=== PATIENT | female | born 1990 | race Caucasian/White ===

== ENCOUNTER → 2016-07-17 | Outpatient (CLI) | payer BC ==
--- NOTE | 2016-07-17 16:55 | US ---
EXAMINATION TYPE: US pelvic complete DATE OF EXAM: 07/17/2016 COMPARISON: NONE CLINICAL HISTORY: R10.2 PELVIC PAIN. possible endometriosis, trying for 1 year to get TECHNIQUE: TA Date of LMP: 07/06/2016 EXAM MEASUREMENTS: Uterus: 10.9 x 6.4 x 4.9 cm Endometrial Stripe: 1.4 cm Right Ovary: 2.8 x 2.4 x 3.0 cm Left Ovary: 2.5 x 1.9 x 2.0 cm 1. Uterus: Retroverted wnl 2. Endometrium: wnl 3. Right Ovary: 1.6cm dominate follicle seen 4. Left Ovary: wnl 5. Bilateral Adnexa: wnl 6. Posterior cul-de-sac: wnl IMPRESSION: Retroverted uterus. Negative transabdominal pelvic sonogram.
== END | disposition home or self-care (01) ==
LOC: RADUSWWP 16:00
PROVIDERS: ATTEND Obstetrics & Gynecology
DX: N85.4 Malposition of uterus (principal); R10.2 Pelvic and perineal pain
CPT/HCPCS: 76856

== ENCOUNTER → 2017-03-26 | Outpatient (CLI) | payer BC ==
[2017-03-26 10:04] LABS: HCT 37.6 % (34.0-46.0); HGB 12.3 gm/dL (11.4-16.0); MCH 29.6 pg (25.0-35.0); MCHC 32.7 g/dL (31.0-37.0); MCV 90.4 fL (80.0-100.0); Mean Platelet Volume 8.1; Platelet Count 171 k/uL (150-450); RBC 4.16 m/uL (3.80-5.40); RDW 12.7 % (11.5-15.5)
== END | disposition home or self-care (01) ==
LOC: LABWHC1 08:23
PROVIDERS: ATTEND Obstetrics & Gynecology
DX: Z34.82 Encounter for supervision of other normal pregnancy, second trimester (principal); Z3A.00 Weeks of gestation of pregnancy not specified
CPT/HCPCS: 36415; 82950; 85027

== ENCOUNTER 2017-04-28 11:28 | Outpatient (CLI) | payer BC ==
[2017-04-28 11:53] LABS: Appearance,Urine Clear (Clear); Bilirubin,Urine Negative (Negative); Blood,Urine Negative (Negative); Color,Urine Light Yellow; Glucose,Urine (UA) Negative (Negative); Ketones,Urine Negative (Negative); Leukocyte Esterase,Urine Negative (Negative); Nitrite,Urine Negative (Negative); Protein,Urine Negative (Negative); Specific Gravity,Urine 1.001 (1.001-1.035); Urobilinogen,Urine <2.0 mg/dL (<2.0)
[2017-04-28 12:20] VITALS: BP 110/61; PULSE 77; RESP 16; TEMP 97.2
[2017-04-28 12:22] LABS: Basophils % (A) 0 %; Eosinophils # (A) 0.1 k/uL (0-0.7); Eosinophils % (A) 1 %; HCT 35.3 % (34.0-46.0); HGB 12.5 gm/dL (11.4-16.0); Lymphocytes # (A) 1.2 k/uL (1.0-4.8); Lymphocytes % (A) 24 %; MCH 30.5 pg (25.0-35.0); MCHC 35.3 g/dL (31.0-37.0); MCV 86.3 fL (80.0-100.0); Monocytes # (A) 0.4 k/uL (0-1.0); Monocytes % (A) 8 %; Neutrophils # (A) 3.2 k/uL (1.3-7.7); Neutrophils % (A) 63 %; Platelet Count 157 k/uL (150-450); WBC 5.1 k/uL (3.8-10.6)
[2017-04-28] MEDS: LACTATED RINGERS 1,000 ML IV ONE ×2 (12:22→13:00)
--- NOTE | 2017-04-28 17:28 | P.MSEPDOC ---
Presenting Problems - Arrival Data Date of Arrival on Unit: 04/28/17 Time of Arrival on Unit: 11:28 Mode of Transport: Ambulatory - Complaint OB-Reason for Admission/Chief Complaint: Possible Onset of Labor, Pain Comment: Contractions since yesterday following several hours of vomitting and diarrhea; states tightening in abdomen and pain "in cervix" during contractions , rating 2/10. Fetus with congential heart defect. Medical History - Information : 5 Para: 2 Term: 2 : 0 Abortions: Spontaneous or Elective: 2 Number of Living Children: 2 - Gestational Age Gestational Age by SANAM (wks/days): 30 Weeks and 3 Days Review of Systems - Review of Systems Constitutional: No problems Breast: No problems ENT: No problems Cardiovascular: No problems Respiratory: No problems Gastrointestinal: No problems Genitourinary: No problems Musculoskeletal: No problems Neurological: No problems Skin: No problems Comment: Pt states no vomitting or diarrhea for >24 hours Vital Signs - Temperature Temperature: 97.2 F Temperature Source: Temporal Artery Scan - Pulse Right Sitting Brachial Pulse Rate: 77 Pulse Assessment Method: Automatic Cuff - Respirations Respiratory Rate: 16 Oxygen Delivery Method: Room Air O2 Sat by Pulse Oximetry: 99 - Blood Pressure Right Arm Sitting Blood Pressure: 110/61 Blood Pressure Mean: 77 Blood Pressure Source: Automatic Cuff Medical Screen Scoring (Pre) - Cervical Exam Dilation: 0 cm = 0 Membranes: Intact - Uterine Contractions Frequency: N/A Duration: N/A Intensity: N/A - Maternal Vital Signs Maternal Temperature: N/A Maternal Blood Pressure: N/A Signs of Preeclampsia: N/A Maternal Respirations: N/A - Total Score Total Score (Pre): 0 - Level of Risk Level of Risk: Low (0-5) Physician Notification (Pre) - Physician Notified Physician Notified Date: 04/28/17 Physician Notified Time: 11:40 Physician/Practitioner Notifed:: Beverley Spoke With: Beverley New Order Received: Yes - Notification Comment Comment: Dr. Lowery present on unit; advsd pts reason for visit; states to start IV, CBC, FFN, SVE, Influenza swab, UA. Medical Screen Scoring (Post) - Cervical Exam Dilation: 1-3 cm = 1 Membranes: Intact - Uterine Contractions Frequency: N/A Duration: N/A Intensity: N/A - Maternal Vital Signs Maternal Temperature: N/A Maternal Blood Pressure: N/A Signs of Preeclampsia: N/A Maternal Respirations: N/A - Maternal Trauma Maternal Trauma: N/A - Assessment Heart Rate: 140 Heart Rate - NICHD Category: Category I (Normal) = 0 Station: N/A - Total Score Total Score (Post): 1 - Post Treatment Level of Risk Post Treatment Level of Risk: Low (0-5) Physician Notification (Post) - Physician Notified Physician Notified Date: 04/28/17 Physician Notified Time: 14:45 Physician/Practitioner Notified:: Beverley Spoke With: Beverley New Order Received: Yes - Notification Comment Comment: Spk c\\Dr. Lowery, advsd no change in SVE x 3, pt reporting abdomen tightening and pressure in back, not tracing on TOCO. Reactive NST. All labs WNL , FFN neg. States to d/c, follow up with [facility] 05/09/17, call to reschedule missed appt c\\Dr. Lowery. Pt to go directly to [facility] if contractions intensify. Disposition - Disposition OB Disposition: Discharge to home, Written follow up instructions reviewed Discharge Date: 04/28/17 Discharge Time: 14:50 I agree with the RN Medical Screening Exam: Yes Risk & Benefit of care provided described in d/c instruction: Yes Diagnosis: FALSE LABOR BEFORE 37 COMPLETED WEEKS OF GEST, THIRD TRI
== END 2017-04-28 14:50 | disposition home or self-care (01) ==
LOC: FBPOP 11:28
PROVIDERS: ATTEND Obstetrics & Gynecology
DX: O47.03 False labor before 37 completed weeks of gestation, third trimester (principal); Z3A.30 30 weeks gestation of pregnancy
CPT/HCPCS: 59025; 59200; 81003; 82731; 85025; 87502; 96360; 96361; 99214

== ENCOUNTER → 2020-02-28 | Outpatient (CLI) | payer OTHER | END | disposition home or self-care (01) | LOC: LABWHC1 12:19 | PROVIDERS: ATTEND Obstetrics & Gynecology | DX: N92.6 Irregular menstruation, unspecified (principal); Z32.01 Encounter for pregnancy test, result positive | CPT/HCPCS: 36415; 84702 ==

== ENCOUNTER → 2020-03-12 | Outpatient (CLI) | payer OTHER ==
--- NOTE | 2020-03-13 13:22 | US ---
EXAMINATION TYPE: Transabdominal DATE OF EXAM: 03/12/2020 4:04 PM COMPARISON: NONE CLINICAL HISTORY: Z36 Confirm dates. EXAM PERFORMED: EXAM MEASUREMENTS: GESTATIONAL AGE / DATING Physician Established: Not yet established Dates by LMP: (7 weeks/1 days) EDC: 10-28-20 Dates by First Scan: No previous this is first scan Dates by Current Scan for: ( 7 weeks/0 days) EDC: 10-29-20 MATERNAL ANATOMY Uterus: 11. 2 x 5.1 x 6.9cm Right Ovary: 3.4 x 1.9 x 2.1cm Left Ovary: 3.2 x 2.7 x 2.4cm Post CDS / Adnexa: wnl Presence of free fluid: no GESTATION / SURVEY CRL: 0.9 (7 weeks/0 days) Yolk Sac (normal less than 6mm): 3mm Heart Rate: 145 bpm Rhythm: Normal IUP: Viable IUP Date of LMP: 10-28-20 Beta HcG (if available): Not available at this time IMPRESSION: 1. Single intrauterine gestation estimated at 7 weeks 0 days gestation based on crown-rump length. Ca rdiac activity measuring 125 bpm was observed during the study
== END | disposition home or self-care (01) ==
LOC: RADUSWWP 15:33
PROVIDERS: ATTEND Obstetrics & Gynecology
DX: Z36.87 Encounter for antenatal screening for uncertain dates (principal); Z3A.01 Less than 8 weeks gestation of pregnancy
CPT/HCPCS: 76801

== ENCOUNTER → 2020-06-17 | Outpatient (CLI) | payer OTHER ==
--- NOTE | 2020-06-17 10:41 | USB ---
Reason for exam: clinical finding. Indicated problem(s): pain in the right breast. Physical Findings: Nurse Summary: Patient complains of bilateral breast lumps since started breast feeding 3 years ago with right breast pain (nurse mj). US Breast RT Right complete breast ultrasound includes all four quadrants, the retroareolar region and axilla. Finding demonstrates no cystic or solid lesion seen. Dense tissue throughout scan. These results were verbally communicated with the patient and result sheet given to the patient on 06/17/20. ASSESSMENT: Benign, BI-RAD 2 RECOMMENDATION: Clinical management of the right breast. Manage patient on a clinical basis.
== END | disposition home or self-care (01) ==
LOC: RADUSWWP 09:37
PROVIDERS: ATTEND Obstetrics & Gynecology
DX: N64.4 Mastodynia (principal)

== ENCOUNTER 2020-09-10 14:07 | Outpatient (CLI) | payer OTHER ==
[2020-09-10] MEDS ORDERED: LACTATED RINGERS 1,000 ML IV SCH (16:15)
[2020-09-10] MEDS ORDERED: BETAMET ACET-BETAMETH SOD PHOS 6 MG/ML MDV IM SCH (16:15)
[2020-09-10 17:16] VITALS: BP 112/64; PULSE 70; RESP 17; TEMP 97.6
--- NOTE | 2020-09-14 13:11 | P.MSEPDOC ---
Presenting Problems - Arrival Data Date of Arrival on Unit: 09/10/20 Time of Arrival on Unit: 14:07 Mode of Transport: Ambulatory - Complaint OB-Reason for Admission/Chief Complaint: NST, Celestone Injection Medical History - Information : 4 Para: 3 Term: 3 : 0 Abortions: Spontaneous or Elective: 0 Number of Living Children: 3 - Gestational Age Gestational Age by SANAM (wks/days): 33 Weeks and 0 Days Review of Systems - Review of Systems Constitutional: No problems Breast: No problems ENT: No problems Cardiovascular: No problems Respiratory: No problems Gastrointestinal: No problems Genitourinary: No problems Musculoskeletal: No problems Neurological: No problems Skin: No problems Vital Signs - Temperature Temperature: 97.6 F Temperature Source: Oral - Pulse Right Brachial Pulse Rate: 70 Pulse Assessment Method: Automatic Cuff - Respirations Respiratory Rate: 17 Oxygen Delivery Method: Room Air O2 Sat by Pulse Oximetry: 98 - Blood Pressure Right Arm Blood Pressure: 112/64 Blood Pressure Mean: 80 Blood Pressure Source: Automatic Cuff Medical Screen Scoring - Cervical Exam Dilation (cm): 2.5 Effacement (%): 70 Membranes: Intact - Assessment - Baby A Baseline FHR: 120 Heart Rate - NICHD Category: Category I (Normal) NST: Reactive Maternal Triage Index - Urgent/Priority 2 Urgent Priority 2: Yes Provider Notified: Jeremias Lowery Provider Notified Time: 14:07 Criteria Met for Priority 2: Dr Lowery had called before pt arrived with orders, ffn resulted -, iv huydration and steroids administered Disposition - Disposition OB Disposition: Discharge to home, Written follow up instructions reviewed Discharge Date: 09/10/20 Discharge Time: 17:00 I agree with the RN Medical Screening Exam: Yes Case reviewed; plan agreed upon as documented in EMR&OBIX.: Yes Diagnosis: LABOR WITHOUT DELIVERY, THIRD TRIMESTER
== END 2020-09-10 17:00 | disposition home or self-care (01) ==
LOC: FBPOP 14:07
PROVIDERS: ATTEND Obstetrics & Gynecology
DX: O60.03 Preterm labor without delivery, third trimester (principal); Z3A.33 33 weeks gestation of pregnancy
CPT/HCPCS: 59025; 96360; 82731; J0702

== ENCOUNTER 2020-09-11 16:45 | Outpatient (CLI) | payer OTHER ==
[2020-09-11] MEDS ORDERED: BETAMET ACET-BETAMETH SOD PHOS 6 MG/ML MDV IM SCH (17:00)
--- NOTE | 2020-09-14 13:12 | P.MSEPDOC ---
Presenting Problems - Arrival Data Date of Arrival on Unit: 09/11/20 Time of Arrival on Unit: 16:45 Mode of Transport: Ambulatory - Complaint OB-Reason for Admission/Chief Complaint: Celestone Injection Medical History - Gestational Age Gestational Age by SANAM (wks/days): 33 Weeks and 1 Days Review of Systems - Review of Systems Constitutional: No problems Breast: No problems ENT: No problems Cardiovascular: No problems Respiratory: No problems Gastrointestinal: No problems Genitourinary: No problems Musculoskeletal: No problems Neurological: No problems Skin: No problems Physician Notification - Physician Notified Physician Notified Date: 09/11/20 Physician Notified Time: 17:00 Physician: Heriberto Vasquez Order Received: Yes (discharge) Maternal Triage Index - Maternal Triage Index Presenting for scheduled procedure w/no complaint: No - Stat/Priority 1 Stat Priority 1: No - Urgent/Priority 2 Urgent Priority 2: No - Prompt/Priority 3 Prompt Priority 3: No - Non-Urgent/Priority 4 Non-Urgent Priority 4: No - Scheduled/Requesting Priority 5 Scheduled/Requesting Priority 5: Yes Criteria Met for Priority 5: Pt has order for repeat Celestone injection only Disposition - Disposition OB Disposition: Discharge to home Discharge Date: 09/11/20 Discharge Time: 17:00 I agree with the RN Medical Screening Exam: Yes Case reviewed; plan agreed upon as documented in EMR&OBIX.: Yes Diagnosis: LABOR WITHOUT DELIVERY, THIRD TRIMESTER
== END 2020-09-11 17:00 | disposition home or self-care (01) ==
LOC: FBPOP 16:45
PROVIDERS: ATTEND Obstetrics & Gynecology
DX: O60.03 Preterm labor without delivery, third trimester (principal); Z3A.33 33 weeks gestation of pregnancy
CPT/HCPCS: 96372; J0702

== ENCOUNTER 2020-09-20 15:39 | Outpatient (CLI) | payer OTHER ==
[2020-09-20 16:47] LABS: Appearance,Urine Clear (Clear); Bacteria,Urine Rare /hpf; Bilirubin,Urine Negative (Negative); Blood,Urine Negative (Negative); Color,Urine Colorless; Glucose,Urine (UA) Negative (Negative); Ketones,Urine Trace (Negative); Leukocyte Esterase,Urine Moderate (Negative); Nitrite,Urine Negative (Negative); PH, Urine 6.5 (5.0-8.0); Protein,Urine Negative (Negative); Specific Gravity,Urine 1.001 (1.001-1.035); Squamous Epithelial Cell,Urine <1 /hpf (0-4); Urobilinogen,Urine <2.0 mg/dL (<2.0); WBC,Urine 2 /hpf (0-5)
[2020-09-20 17:28] VITALS: BP 115/60; PULSE 60; RESP 16; TEMP 98
--- NOTE | 2020-09-24 07:36 | P.MSEPDOC ---
Presenting Problems - Arrival Data Date of Arrival on Unit: 09/20/20 Time of Arrival on Unit: 15:44 Mode of Transport: Ambulatory - Complaint OB-Reason for Admission/Chief Complaint: Possible Onset of Labor Medical History - Information : 4 Para: 3 Number of Living Children: 3 - Gestational Age Gestational Age by SANAM (wks/days): 34 Weeks and 3 Days - History Complications: No Care Review of Systems - Review of Systems Constitutional: No problems Breast: No problems ENT: No problems Cardiovascular: No problems Respiratory: No problems Gastrointestinal: No problems Genitourinary: No problems Musculoskeletal: No problems Neurological: No problems Skin: No problems Vital Signs - Temperature Temperature: 98.0 F Temperature Source: Axillary - Pulse Right Sitting Brachial Pulse Rate: 60 Pulse Assessment Method: Automatic Cuff - Respirations Respiratory Rate: 16 Oxygen Delivery Method: Room Air - Blood Pressure Right Arm Sitting Blood Pressure: 115/60 Blood Pressure Mean: 78 Blood Pressure Source: Automatic Cuff Physician Notification - Physician Notified Physician Notified Date: 09/20/20 Physician Notified Time: 17:04 New Order Received: Yes Maternal Triage Index - Stat/Priority 1 Stat Priority 1: No - Urgent/Priority 2 Urgent Priority 2: No - Prompt/Priority 3 Prompt Priority 3: No - Non-Urgent/Priority 4 Non-Urgent Priority 4: Yes Criteria Met for Priority 4: contractions Disposition - Disposition OB Disposition: Discharge to home Discharge Date: 09/20/20 Discharge Time: 17:20 I agree with the RN Medical Screening Exam: Yes Case reviewed; plan agreed upon as documented in EMR&OBIX.: Yes Diagnosis: FALSE LABOR BEFORE 37 COMPLETED WEEKS OF GEST, THIRD TRI
== END 2020-09-20 17:20 | disposition home or self-care (01) ==
LOC: FBPOP 15:39
PROVIDERS: ATTEND Obstetrics & Gynecology
DX: O47.03 False labor before 37 completed weeks of gestation, third trimester (principal); Z3A.34 34 weeks gestation of pregnancy
CPT/HCPCS: 59025; 81001; G0463; 99213

== ENCOUNTER 2020-10-03 10:06 | Inpatient (IN) | payer OTHER ==
[2020-10-03] MEDS ORDERED: METHYLERGONOVINE 0.2 MG/ML 1 ML AMP IM PRN (11:05)
[2020-10-03] MEDS ORDERED: LIDOCAINE 0.5% (PF) 5 MG/ML (50 ML SDV) SQ PRN (11:05)
[2020-10-03] MEDS ORDERED: CARBOPROST TROMETHAMINE 250 MCG/ML 1 ML AMP IM PRN (11:05)
[2020-10-03] MEDS ORDERED: AMPICILLIN 2,000 MG in SODIUM CHLORIDE 0.9% 100 ML IVPB STA (11:05)
[2020-10-03] MEDS ORDERED: OXYTOCIN 10 UNIT/ML 1 ML VIAL IM PRN (11:05)
[2020-10-03] MEDS ORDERED: TERBUTALINE 1 MG/ML VIAL SQ PRN (11:05)
[2020-10-03] MEDS ORDERED: OXYTOCIN 30 UNITS/500 ML NS 30 UNIT in SALINE 1 500ML.BAG IV SCH ×2 (11:15→20:30)
[2020-10-03 11:29] LABS: Basophils % (A) 1 %; Eosinophils # (A) 0.1 k/uL (0-0.7); Eosinophils % (A) 1 %; HCT 34.8 % (34.0-46.0); Lymphocytes # (A) 1.7 k/uL (1.0-4.8); Lymphocytes % (A) 24 %; MCH 30.8 pg (25.0-35.0); MCHC 34.4 g/dL (31.0-37.0); MCV 89.6 fL (80.0-100.0); Mean Platelet Volume 9.3; Monocytes # (A) 0.4 k/uL (0-1.0); Monocytes % (A) 5 %; Neutrophils # (A) 4.8 k/uL (1.3-7.7); Neutrophils % (A) 67 %; Platelet Count 182 k/uL (150-450); RBC 3.89 m/uL (3.80-5.40); RDW 14.5 % (11.5-15.5); WBC 7.2 k/uL (3.8-10.6)
[2020-10-03] MEDS: LACTATED RINGERS 1,000 ML IV SCH ×2 (11:29→19:12)
[2020-10-03] MEDS: AMPICILLIN 1,000 MG in SODIUM CHLORIDE 0.9% 50 ML IVPB SCH ×2 (15:31→19:29)
--- NOTE | 2020-10-03 17:35 | P.HPOB ---
History of Present Illness H&P Date: 10/03/20 Chief Complaint: P prom at 36 weeks Susu is a 30-year-old at 36 weeks gestation who arrives following spontaneous rupture membranes this morning. Group B strep has not been done and she will have prophylactic antibiotics. Her course generally speaking had been unremarkable and she was doing well until today. She had had some contractions and possible labor-like symptoms but otherwise voices no complaints and her was otherwise generally unremarkable. The fetus did undergo a echocardiogram with maternal- medicine but she was unable to continue following up with them. The echocardiogram was normal. Pertinent labs A+ blood type, Rh and it was negative, rubella is immune, hepatitis B surface antigen, RPR were both negative. She does have a latex ALLERGY. She did receive 2 doses of Celestone for possible labor at approximately 33 weeks. All the questions are answered for her at this time and if spontaneous labor does not consume Pitocin augmentation of labor will be initiated. A category 1 tracing is otherwise noted. Past Medical History Past Medical History: No Reported History History of Any Multi-Drug Resistant Organisms: None Reported Past Surgical History: No Surgical Hx Reported Past Psychological History: No Psychological Hx Reported Smoking Status: Never smoker - Past Family History Mother History Unknown: Yes Family Medical History: No Reported History Medications and Allergies Home Medications Medication Instructions Recorded Confirmed Type Pnv No.95/Ferrous Fum/Folic AC 1 tab PO DAILY 04/28/17 10/03/20 History [ Multivitamin Tablet] Allergies Allergy/AdvReac Type Severity Reaction Status Date / Time latex Allergy Rash/Hives Verified 10/03/20 10:43 Exam Osteopathic Statement: *. No significant issues noted on an osteopathic structural exam other than those noted in the History and Physical/Consult. Vital Signs Temp Pulse Resp BP 10/03/20 12:03 97.4 F L 82 16 120/68 Intake and Output 10/03/20 10/03/20 10/03/20 06:59 14:59 22:59 Other: # Voids 2 # Bowel Movements 0 Weight 75.296 kg - OBG Physical Exam Breast: both: normal (no masses) Abdomen: bowel sounds normal, no diffuse tenderness, no bruit present, no guarding noted, no hepatomegaly, no splenomegaly, no mass Vulva: both: normal Vagina: normal moisture, no discharge Cervix: no lesion, no discharge Uterus: normal size, normal contour Adnexa: both: normal Anus/Rectum: normal perianal skin, no rectal mass, no hemorrhoids, heme negative Results Result Diagrams: 10/03/20 11:00
--- NOTE | 2020-10-03 20:24 | P.PROBDLV ---
Vaginal Delivery Note - . Vaginal Delivery Note: Normal spontaneous vaginal delivery viable male infant Apgars 9 and 9 delivery time is 2012 hrs. Please see dictated H&P per Dr. Lowery on this patient's admission. In brief summary this is a pleasant 30-year-old 4 para 3 female estimated gestational age 36-2/7 weeks admitted to labor and delivery with spontaneous rupture membranes. Patient is unknown group B strep status and therefore given a dose of antibiotics. After 4 hours she does not have any progression and therefore started on Pitocin per protocol. She does not request anything for pain control. Patient's labor progresses quickly thereafter she gets to complete. Patient pushes the head to the perineum the posterior perineum was supported. We then have controlled delivery of 's head over the intact perineum. Mouth and nares are bulb suctioned. Infant is straight occiput anterior presentation. There is no evidence of a nuchal cord. With gentle downward traction we then have deliver the anterior and posterior shoulder and rest this 's body. This is a vigorous viable male infant Apgars are 9 and 9 delivery time is 2012 hrs. After delivery of the infant, the infant is late on the mother's abdomen. The cord is allowed quit pulsating and then doubly clamped and cut. It appears to be trivascular. The placenta is then spontaneously delivered intact. Estimated blood loss is about 100 mL. There are no lacerations and no repairs required. and mother are stable delivery room.
[2020-10-03] MEDS ORDERED: LANOLIN CREAM 5 GM TUBE TOPICAL PRN (20:29)
[2020-10-03] MEDS ORDERED: BENZOCAINE/MENTHOL SPRAY 1 GM/SPRAY AEROSOL TOPICAL PRN (20:29)
[2020-10-03] MEDS ORDERED: bisacodyL 10 MG SUPP RECTAL PRN (20:29)
[2020-10-03] MEDS ORDERED: ZOLPIDEM 5 MG TAB PO PRN (20:29)
[2020-10-03] MEDS ORDERED: diphenhydrAMINE 50 MG/ML 1 ML VIAL IVP PRN (20:29)
[2020-10-03] MEDS ORDERED: HYDROCORTISONE 2.5% RECTAL CREAM 30 GM TUBE RECTAL PRN (20:29)
[2020-10-03] MEDS ORDERED: diphenhydrAMINE 25 MG CAP PO PRN (20:29)
[2020-10-03] MEDS ORDERED: SIMETHICONE 80 MG CHEWABLE PO PRN (20:29)
[2020-10-03] MEDS: IBUPROFEN 600 MG TAB PO PRN (22:34)
[2020-10-04] MEDS: IBUPROFEN 600 MG TAB PO PRN ×2 (07:42→19:54)
[2020-10-04] MEDS: SENNOSIDES-DOCUSATE SODIUM 1 EACH TAB PO SCH ×2 (07:42→19:53)
--- NOTE | 2020-10-04 09:25 | P.PNOBGVD ---
Subjective - Subjective Principal diagnosis: day 1 Interval history: Susu is doing very well this morning. She is ambulating, voiding and tolerating a diet. If she is able to go home tonight she will plan to be discharged home later tonight. As she is only 36 weeks we're waiting to see with the ear muff assembler size. Otherwise she is stable at this time and will continue care this morning and finalize plan later this afternoon. Patient reports: Reports appetite normal, Reports voiding normally, Reports pain well controlled, Reports ambulating normally : doing well Objective - Latest Vital Signs Latest vital signs: Vital Signs Temp Pulse Resp BP 10/04/20 08:00 97.4 F L 57 L 16 89/55 10/04/20 03:40 98.2 F 60 16 96/54 10/04/20 00:30 98.9 F 74 16 109/66 10/03/20 22:16 98.1 F 59 L 16 114/70 10/03/20 21:50 55 L 16 111/69 10/03/20 21:20 63 16 114/58 10/03/20 21:05 80 16 120/57 10/03/20 20:50 82 16 119/68 10/03/20 20:35 76 16 119/66 10/03/20 20:20 97.9 F 85 16 115/64 10/03/20 12:03 97.4 F L 82 16 120/68 Intake and Output 10/03/20 10/04/20 10/04/20 22:59 06:59 14:59 Intake Total 50 Balance 50 Intake: Oral 50 Other: # Voids 1 1 # Bowel Movements 0
--- NOTE | 2020-10-04 13:26 | P.DS ---
Providers Date of admission: 10/03/20 10:46 Expected date of discharge: 10/04/20 Attending physician: Jeremias Lowery Primary care physician: Stated None Hospital Course: Is continues to do well day 1. In all likelihood her baby will be discharged home later today so we will plan to discharge her as well this evening. Discharge instructions were thoroughly reviewed and all questions were answered for her there are no other changes to her medical or Hospital course her vital signs remained stable and she is afebrile. Her heart is regular, lungs are clear, extremities without pain. Abdomen soft uterus firm and lochia is reported light. Assessment day 1. Plan discharged home follow up with me in 6 weeks. Prescription for a breast pump is provided discharge instructions were thoroughly reviewed Patient Condition at Discharge: Good Plan - Discharge Summary New Discharge Prescriptions: No Action Pnv No.95/Ferrous Fum/Folic AC [ Multivitamin Tablet] 1 tab PO DAILY Discharge Medication List Pnv No.95/Ferrous Fum/Folic AC [ Multivitamin Tablet] 1 tab PO DAILY 04/28/17 [History] Follow up Appointment(s)/Referral(s): Jeremias Lowery DO [Doctor of Osteopathic Medicine] - 11/13/20 2:00 pm Activity/Diet/Wound Care/Special Instructions: Lifting, limit stairs and driving, and pelvic rest. If any high temperatures, heavy bleeding, or severe pain call my office Discharge Disposition: HOME SELF-CARE
[2020-10-04] MEDS: ACETAMINOPHEN TAB 325 MG TAB PO PRN (21:59)
[2020-10-05] MEDS: IBUPROFEN 600 MG TAB PO PRN ×2 (02:11→08:40)
[2020-10-05] MEDS: ACETAMINOPHEN TAB 325 MG TAB PO PRN ×2 (02:11→05:41)
[2020-10-05] MEDS: SENNOSIDES-DOCUSATE SODIUM 1 EACH TAB PO SCH (08:40)
[2020-10-05 09:20] VITALS: BP 108/70; PULSE 58; RESP 16; TEMP 98.4
== END 2020-10-05 11:45 | disposition home or self-care (01) | DRG 807 ==
LOC: FBPOP 10:06 → 4FBP 10:46
PROVIDERS: ADMIT Obstetrics & Gynecology; ATTEND Obstetrics & Gynecology
PROC: 10E0XZZ Delivery of Products of Conception, External Approach (ICD-10-PCS; principal; 2020-10-03)
DX: O42.013 Preterm premature rupture of membranes, onset of labor within 24 hours of rupture, third trimester (principal); Z37.0 Single live birth; Z3A.36 36 weeks gestation of pregnancy; Z79.899 Other long term (current) drug therapy; Z91.040 Latex allergy status
CPT/HCPCS: 59025; 84112; 85025; 86850; 86900; 86901; 99213

== ENCOUNTER 2023-02-27 06:57 | Emergency (ER) | payer OTHER ==
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
[2023-02-27 07:09] VITALS: BP 138/88; RESP 18
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
[2023-02-27 08:22] VITALS: PULSE 102
== END 2023-02-27 08:10 | disposition home or self-care (01) ==
LOC: EC 06:57
DX: S16.1XXA Strain of muscle, fascia and tendon at neck level, initial encounter (principal); S00.03XA Contusion of scalp, initial encounter; Z91.040 Latex allergy status; V89.2XXA Person injured in unspecified motor-vehicle accident, traffic, initial encounter; Y92.410 Unspecified street and highway as the place of occurrence of the external cause
CPT/HCPCS: 70450; 71046; 72125; 99284